=== PATIENT | female | born 1945 | race Caucasian/White ===

== ENCOUNTER 2017-10-29 18:35 | Emergency (ER) | payer OTHER, MEDICAID ==
[2017-10-29 21:07] VITALS: BP 131/62
== END 2017-10-29 21:08 | disposition home or self-care (01) ==
LOC: ED 18:35
DX: L23.9 Allergic contact dermatitis, unspecified cause (principal); I10 Essential (primary) hypertension; E78.00 Pure hypercholesterolemia, unspecified
CPT/HCPCS: J0171; J1200; J2930